=== PATIENT | male | born 1960 | race Two or more races ===

== ENCOUNTER 2017-06-21 22:17 | Emergency (ER) | payer OTHER ==
[2017-06-21] MEDS ORDERED: PANTOPRAZOLE SODIUM 40 MG VIAL IV ONE (22:27)
[2017-06-21] MEDS ORDERED: MIDAZOLAM 2 MG/2 ML INJ IV ONE (22:27)
[2017-06-21] MEDS ORDERED: ONDANSETRON HCL INJ/PF 4 MG/2 ML SDV IV ONE (22:27)
--- NOTE | 2017-06-21 22:35 | ER Document Report ---
ED General - General Stated Complaint: ALTERED MENTAL STATUS Time Seen by Provider: 06/21/17 22:27 Notes: 57-year-old male presents brought in by his for altered mental status and combativeness. He has a history of diabetes alcoholism and possible pancreatitis and was found to the [facility] vomiting after drinking. She does not have much more information available and the patient is altered and combative. - Related Data Allergies/Adverse Reactions: codeine [Codeine] Allergy (Verified 11/08/13 10:29) bee Allergy (Uncoded 11/08/13 10:29) Past Medical History - General Information source: Patient, Relative - Social History Smoking Status: Current Every Day Smoker Family History: Reviewed & Not Pertinent, Other - Unavailable secondary to mental status - Past Medical History Cardiac Medical History: Reports: Hx Hypertension Endocrine Medical History: Reports: Hx Diabetes Mellitus Type 2 Past Surgical History: Reports: Hx Orthopedic Surgery - right knee, Hx Pancreatic Surgery - insulin pump, Hx Tonsillectomy - Immunizations Hx Diphtheria, Pertussis, Tetanus Vaccination: Yes Review of Systems - Review of Systems Notes: REVIEW OF SYSTEMS Not obtained secondary to altered mental status/patient's acuity PHYSICAL EXAMINATION General: Appears acutely ill and smells of vomit Head: Atraumatic, normocephalic ENT: Mouth normal, oropharynx moist, no exudates or tonsillar enlargement Eyes: Conjunctiva normal, pupils equal, lids normal Neck: No JVD, supple, no guarding CVS: Normal rate, regular rhythm, no murmurs Resp: No resp distress, equal and normal breath sounds bilaterally GI: Nondistended, soft, no tenderness to palpation, no rebound or guarding Ext: No deformities, no edema, normal range of motion in upper and lower ext Back: No CVA or midline TTP Skin: No rash, warm Lymphatic: No lymphadeopathy noted Neuro: Intermittently thrashing strongly with all 4 extremities and somnolent.. Physical Exam - Vital signs Vitals: Resp Pulse Ox 14 95 06/21/17 22:30 06/21/17 22:30 Course - Re-evaluation Re-evalutation: 06/21/17 22:34 This patient was seen by me immediately on arrival secondary to acuity. This is a 57-year-old male brought in with altered mental status in the setting of known diabetes and alcoholism. There is not much history available. He has no trauma. Initially his blood sugar, after being held down and checked, was 131 so this is not the source. Differential includes narcotic overdose, alcohol intoxication, DKA or encephalopathy. The patient was immediately given 2 mg of intravenous Versed and restrained. This facilitated further laboratory workup. His vital signs were stable. He did begin vomiting pinkish vomit. This was suctioned free of the airway and required no further action. He was given Zofran. I will do workup both for his altered mental status and GI bleed which will consist of laboratory testing. He will be given a liter of fluid. I discussed his condition with his . 06/21/17 22:41 Reassessed at 10:40 PM. Patient is snoring and occasionally drops his saturation to about 90. This corrects with airway repositioning, stimulation and supplemental oxygen and is likely due to the interaction of the bends it has been in alcohol. 06/21/17 23:08 Patient's blood pressure is now in the 70s. He is arousable to sternal rub and his saturation is normal. I did did a rectal exam and he has brown stool in the vault which is light brown and does not require guaiac testing. I will give him a liter of fluid. Hopefully this is just dehydration intoxication, and sympathic lysis from Versed. Will continue to follow and follow-up labs which are now pending. 06/22/17 05:52 Awake and alert clinically sober at 5:50 AM. Stable for discharge home. - Vital Signs Vital signs: Temp Pulse Resp BP Pulse Ox 97.4 F 13 119/74 97 06/22/17 03:30 06/22/17 03:25 06/22/17 03:16 06/22/17 03:30 - Laboratory Result Diagrams: 06/21/17 22:29 06/21/17 22:29 Laboratory results interpreted by me: 06/21/17 06/21/17 06/21/17 22:22 22:29 22:29 WBC 10.7 H Seg Neuts % (Manual) 23 L Lymphocytes % (Manual) 65 H Abs Lymphs (Manual) 7.4 H Sodium 146.7 H Glucose 130 H POC Glucose 133 H Urine Glucose (UA) 06/21/17 23:15 WBC Seg Neuts % (Manual) Lymphocytes % (Manual) Abs Lymphs (Manual) Sodium Glucose POC Glucose Urine Glucose (UA) >=500 H Critical Care Note - Critical Care Note Total time excluding time spent on procedures (mins): 40 - The above patient is critically ill. Not including procedures, but including direct re-evaluations, speaking with patient and/or consultants, interpreting results, and documenting , I spent the total amount of minute listed listed above on critical care time Discharge - Discharge Clinical Impression: Alcohol intoxication Qualifiers: Complication of substance-induced condition: uncomplicated Qualified Code(s): F10.920 - Alcohol use, unspecified with intoxication, uncomplicated Condition: Good Disposition: HOME, SELF-CARE Instructions: Acute Alcohol Intoxication ([facility])
--- NOTE | 2017-06-21 23:07 | RADIOLOGY REPORT (SQ) ---
EXAM DESCRIPTION: CHEST SINGLE VIEW COMPLETED DATE/TIME: 06/21/2017 10:58 pm REASON FOR STUDY: vomiting r/o aspiration COMPARISON: 11/07/2013 EXAM PARAMETERS: NUMBER OF VIEWS: One view. TECHNIQUE: Single frontal radiographic view of the chest acquired. RADIATION DOSE: NA LIMITATIONS: None. FINDINGS: LUNGS AND PLEURA: Low lung volumes results mild bronchovascular crowding. A subtle left l ower lobe hazy opacification is present. No pleural effusion or pneumothorax is demonstrated. MEDIASTINUM AND HILAR STRUCTURES: No masses. Contour normal. HEART AND VASCULAR STRUCTURES: Heart normal in size. Normal vasculature. BONES: No acute findings. HARDWARE: None in the chest. OTHER: No other significant finding. IMPRESSION: Subtle findings suggesting a left lower lobe pneumonitis. TECHNICAL DOCUMENTATION: JOB ID: [id number]
[2017-06-21 23:14] LABS: HEMATOCRIT 47.1 % (37.9-51.0); HEMOGLOBIN 15.4 g/dL (13.5-17.0); HGB HCT DIFFERENCE -0.9; MEAN CORPUSCULAR HEMOGLOBIN 28.9 pg (27.0-33.4); MEAN CORPUSCULAR HGB CONC 32.6 g/dL (32.0-36.0); MEAN CORPUSCULAR VOLUME 88 fl (80-97); RED BLOOD COUNT 5.32 10^6/uL (4.35-5.55); RED CELL DISTRIBUTION WIDTH 13.8 % (11.5-14.0); WHITE BLOOD COUNT 10.7 10^3/uL (4.0-10.5)
[2017-06-21 23:32] LABS: ANION GAP 15 (5-19); BLOOD UREA NITROGEN 14 mg/dL (7-20); CALCIUM 9.4 mg/dL (8.4-10.2); CARBON DIOXIDE 25 mmol/L (22-30); CHLORIDE 107 mmol/L (98-107); CREATININE RESULT 1.05 mg/dL (0.52-1.25); GLUCOSE 130 mg/dL (75-110); LIPASE 29.2 U/L (23-300); SODIUM 146.7 mmol/L (137-145)
[2017-06-21 23:35] LABS: BASOPHILS % (MANUAL) 0 % (0-2); EOSINOPHILS % (MANUAL) 1 % (0-6); TOTAL CELLS COUNTED 100
[2017-06-21 23:39] LABS: LYMPHOCYTES % (MANUAL) 65 % (13-45); TARGET CELLS SLIGHT
[2017-06-22 00:47] LABS: APPEARANCE,URINE CLEAR; BILIRUBIN,URINE NEGATIVE (NEGATIVE); GLUCOSE, URINE >=500 mg/dL (NEGATIVE); KETONES,URINE NEGATIVE (NEGATIVE); LEUKOCYTE ESTERASE,URINE NEGATIVE (NEGATIVE); NITRITE,URINE NEGATIVE (NEGATIVE); PROTEIN,URINE NEGATIVE (NEGATIVE); URINE SPECIFIC GRAVITY 1.006; UROBILINOGEN,URINE NEGATIVE mg/dL (<2.0)
[2017-06-22 06:33] VITALS: BP 131/72
[2017-06-23 14:25] LABS: PATH REVIEW PATHOLOGIST REVIEWED
== END 2017-06-22 06:33 | disposition home or self-care (01) ==
LOC: ER 22:17
DX: F10.920 Alcohol use, unspecified with intoxication, uncomplicated (principal); R41.82 Altered mental status, unspecified; E11.9 Type 2 diabetes mellitus without complications; F17.200 Nicotine dependence, unspecified, uncomplicated
CPT/HCPCS: 99291; 96374; 96375; 86900; 86901; 36415; 86850; 82962; 83690; 85025; 82271; 80048; 81001; 71010; J2250; S0164; J2405

== ENCOUNTER 2018-08-14 23:02 | Emergency (ER) | payer OTHER ==
[2018-08-14 23:53] LABS: ABSOLUTE BASOPHILS # (AUTO) 0.2 10^3/uL (0.0-0.2); ABSOLUTE EOSINOPHILS # (AUTO) 0.2 10^3/uL (0.0-0.6); ABSOLUTE LYMPHOCYTES (AUTO) 5.5 10^3/uL (0.5-4.7); ABSOLUTE MONOCYTES (AUTO) 0.8 10^3/uL (0.1-1.4); ABSOLUTE NEUT (AUTO) 3.6 10^3/uL (1.7-8.2); BASOPHILS % (AUTO) 1.5 % (0-2); EOSINOPHILS % (AUTO) 1.5 % (0-6); HEMATOCRIT 40.5 % (37.9-51.0); HEMOGLOBIN 13.7 g/dL (13.5-17.0); LYMPHOCYTES % (AUTO) 54.1 % (13-45); MEAN CORPUSCULAR HEMOGLOBIN 29.3 pg (27.0-33.4); MEAN CORPUSCULAR HGB CONC 33.9 g/dL (32.0-36.0); MEAN CORPUSCULAR VOLUME 86 fl (80-97); MONOCYTES % (AUTO) 7.4 % (3-13); PLATELET COUNT 288 10^3/uL (150-450); RED BLOOD COUNT 4.69 10^6/uL (4.35-5.55); RED CELL DISTRIBUTION WIDTH 14.8 % (11.5-14.0); SEGMENTED NEUTROPHILS % (AUTO) 35.5 % (42-78); TOTAL CELLS COUNTED % (AUTO) 100 %; WHITE BLOOD COUNT 10.1 10^3/uL (4.0-10.5)
[2018-08-15 00:13] LABS: ALANINE AMINOTRANSFERASE 50 U/L (21-72); ALKALINE PHOSPHATASE 72 U/L (38-126); ANION GAP 9 (5-19); ASPARTATE AMINO TRANSFERASE 65 U/L (17-59); BILIRUBIN,DIRECT 0.3 mg/dL (0.0-0.4); BILIRUBIN,TOTAL 0.8 mg/dL (0.2-1.3); BLOOD UREA NITROGEN 12 mg/dL (7-20); CALCIUM 9.4 mg/dL (8.4-10.2); CARBON DIOXIDE 28 mmol/L (22-30); CHLORIDE 107 mmol/L (98-107); CREATINE KINASE 197 U/L (55-170); GLUCOSE 94 mg/dL (75-110); SODIUM 144.1 mmol/L (137-145); TOTAL PROTEIN 7.1 g/dL (6.3-8.2)
[2018-08-15 00:25] LABS: CREATINE KINASE MB 1.29 ng/mL (<4.55); TROPONIN I < 0.012 ng/mL
[2018-08-15] MEDS ORDERED: MORPHINE SULFATE 10 MG/ML INJ IV ONE (01:12)
[2018-08-15] MEDS ORDERED: METOCLOPRAMIDE HCL INJ/PF 10 MG/2 ML SDV IV ONE (01:12)
--- NOTE | 2018-08-15 01:16 | ER Document Report ---
ED General - General Chief Complaint: Chest Pain Stated Complaint: CHEST PAIN Time Seen by Provider: 08/15/18 00:58 Mode of Arrival: Ambulatory Information source: Patient, Relative, [facility] Records Notes: 58-year-old male with diabetes, hypertension, neuropathy, anxiety presents with complaint of chest pain, headache. Patient states that he has had chest pain for 1 year. He states that the chest pain worsened today and has been a constant stabbing pain since he has awoken. Patient complaining of radiation of pain down his left arm. Patient also complaining of left sided headache that he describes as pressure. reports that the patient has not slept in 3 days secondary to his neuropathy. Patient is a diabetic and has an insulin pump and reports that his sugars have been in the low 100s. He denies any previous DC, stress test. Patient took 325 mg of aspirin prior to arrival. TRAVEL OUTSIDE OF THE [place] IN LAST 30 DAYS: No - HPI Onset: Other Onset/Duration: Constant, Persistent, Worse Quality of pain: Pressure, Stabbing Severity: Mild Associated symptoms: Chest pain, Headache, Shortness of breath. denies: Nonproductive cough, Nausea, Vomiting, Sweating, Weakness Exacerbated by: Denies Relieved by: Denies Similar symptoms previously: Yes Recently seen / treated by doctor: No - Related Data Allergies/Adverse Reactions: codeine [Codeine] Allergy (Verified 11/08/13 10:29) bee Allergy (Uncoded 11/08/13 10:29) Past Medical History - General Information source: Patient, [facility] Records - Social History Smoking Status: Current Every Day Smoker Cigarette use (# per day): Yes - 15 Smoking Education Provided: Yes - Smoking cessation counseling was provided for 4 minutes at the bedside Frequency of alcohol use: Occasional Drug Abuse: None Lives with: Spouse/Significant other Family History: Reviewed & Not Pertinent, Other - Unavailable secondary to mental status Patient has suicidal ideation: No Patient has homicidal ideation: No - Past Medical History Cardiac Medical History: Reports: Hx Hypertension Endocrine Medical History: Reports: Hx Diabetes Mellitus Type 2 - insulin pump Renal/ Medical History: Denies: Hx Peritoneal Dialysis Past Surgical History: Reports: Hx Orthopedic Surgery - right knee, Hx Pancreatic Surgery - insulin pump, Hx Tonsillectomy - Immunizations Hx Diphtheria, Pertussis, Tetanus Vaccination: Yes Review of Systems - Review of Systems Notes: REVIEW OF SYSTEMS: CONSTITUTIONAL : Denies fever, chills, or sweats. Denies recent illness. Denies weight loss, recent hospitalizations. EENT: Denies visual changes, eye pain. Denies sore throat, oral lesions, difficulty swallowing. CARDIOVASCULAR: Denies lower extremity edema. RESPIRATORY: Denies cough. Denies wheezing. GASTROINTESTINAL: Denies abdominal pain or distention. Denies nausea, vomiting , or diarrhea. Denies blood in vomitus, stools, or per rectum. Denies black, tarry stools. Denies constipation. GENITOURINARY: Denies difficulty urinating, painful urination, frequency, blood in urine, testicular pain or penile discharge. MUSCULOSKELETAL: Denies back or neck pain or stiffness. Denies joint pain or swelling. SKIN: Denies rash, lesions or sores. HEMATOLOGIC : Denies easy bruising or bleeding. LYMPHATIC: Denies swollen glands. NEUROLOGICAL: Denies confusion or altered mental status. Denies loss of consciousness. Denies dizziness or lightheadedness. Denies weakness or paralysis. Denies problems difficulty with ambulation, slurred speech. Denies sensory loss, numbness, or tingling. Denies seizures. PSYCHIATRIC: Denies anxiety or stress. Denies depression, suicidal ideation, or Physical Exam - Vital signs Vitals: Temp Pulse Resp BP Pulse Ox 98.6 F 75 20 163/73 H 100 08/14/18 23:08 08/14/18 23:08 08/14/18 23:08 08/14/18 23:08 08/14/18 23:08 - Notes Notes: PHYSICAL EXAMINATION: GENERAL: Well-appearing, well-nourished and in no acute distress. HEAD: Atraumatic, normocephalic. EYES: Pupils equal round and reactive to light, extraocular movements intact, sclera anicteric, conjunctiva are normal. ENT: Nares patent, oropharynx clear without exudates. Moist mucous membranes. NECK: Normal range of motion, supple without lymphadenopathy LUNGS: Breath sounds clear to auscultation bilaterally and equal. No wheezes rales or rhonchi. HEART: Regular rate and rhythm without murmurs. Pulses equal throughout. ABDOMEN: Soft, nontender, nondistended abdomen. No guarding, no rebound. No masses appreciated. Musculoskeletal: Normal range of motion, no pitting or edema. No cyanosis. NEUROLOGICAL: Cranial nerves grossly intact. Normal speech, normal gait. Normal sensory, motor exams PSYCH: Normal mood, normal affect. SKIN: Warm, Dry, normal turgor, no rashes or lesions noted. Course - Re-evaluation Re-evalutation: Laboratory 08/14/18 08/14/18 08/14/18 23:40 23:40 23:40 WBC 10.1 RBC 4.69 Hgb 13.7 Hct 40.5 MCV 86 MCH 29.3 MCHC 33.9 RDW 14.8 H Plt Count 288 Seg Neutrophils % 35.5 L Lymphocytes % 54.1 H Monocytes % 7.4 Eosinophils % 1.5 Basophils % 1.5 Absolute Neutrophils 3.6 Absolute Lymphocytes 5.5 H Absolute Monocytes 0.8 Absolute Eosinophils 0.2 Absolute Basophils 0.2 Sodium 144.1 Potassium 4.0 Chloride 107 Carbon Dioxide 28 Anion Gap 9 BUN 12 Creatinine 0.93 Est GFR ( Amer) > 60 Est GFR (Non-Af Amer) > 60 Glucose 94 Calcium 9.4 Total Bilirubin 0.8 Direct Bilirubin 0.3 Neonat Total Bilirubin Not Reportable Neonat Direct Bilirubin Not Reportable Neonat Indirect Bili Not Reportable AST 65 H ALT 50 Alkaline Phosphatase 72 Creatine Kinase 197 H CK-MB (CK-2) 1.29 Troponin I < 0.012 Total Protein 7.1 Albumin 4.0 08/15/18 03:27 WBC RBC Hgb Hct MCV MCH MCHC RDW Plt Count Seg Neutrophils % Lymphocytes % Monocytes % Eosinophils % Basophils % Absolute Neutrophils Absolute Lymphocytes Absolute Monocytes Absolute Eosinophils Absolute Basophils Sodium Potassium Chloride Carbon Dioxide Anion Gap BUN Creatinine Est GFR ( Amer) Est GFR (Non-Af Amer) Glucose Calcium Total Bilirubin Direct Bilirubin Neonat Total Bilirubin Neonat Direct Bilirubin Neonat Indirect Bili AST ALT Alkaline Phosphatase Creatine Kinase CK-MB (CK-2) Troponin I < 0.012 Total Protein Albumin Chest X-Ray 08/14/18 23:27 IMPRESSION: 1. No acute pulmonary process identified. Chest/Abdomen CTA 08/15/18 01:11 IMPRESSION: 1. No CT evidence to suggest acute or chronic pulmonary embolism, aortic aneurysm or aortic dissection. 2. Paraseptal emphysematous changes in the lung apices, greater in the right lung apex and mild parenchymal fibrosis in the anterior left upper lobe. An acute infectious or inflammatory process is considered less likely but not entirely excluded. 3. No evidence of acute intrathoracic disease. 4. Chronic pancreatitis. 58-year-old male presents with complaint of chest pain, left arm pain and headache. Patient states that he has had chest pain for several months. Headache started 2 days prior to arrival. Patient's arm pain is associated with chronic neuropathy. He denies any new injury. Upon arrival vital signs reviewed and within normal limits. Because of the patient's complaint of chest pain with radiation to his back a CTA was obtained and showed no evidence of aortic aneurysm, aortic dissection, pulmonary embolism. Patient was given morphine and Reglan for his headache and chest pain. No significant laboratory findings on CBC, CMP, cardiac enzymes. Troponin negative 2. 08/15/18 03:27 On reevaluation patient reports an improvement of his chest pain, headache. 08/15/18 05:06 On second reevaluation patient still remains chest pain-free. He is declining home-going pain medication. We did speak about follow-up with his primary care physician in the next 3-5 days for possible stress test. Presentation of chest pain in an otherwise well appearing patient. Low clinical suspicion for ACS given clinical history, exam, EKG without ST elevations or depressions, and negative initial troponin. HEART score less than or equal to 3. PE also seems unlikely given clinical history, absence of tachycardia or dyspnea. Patient is PERC criteria negative. CXR without evidence of pneumothorax or pneumonia. No widened mediastinum. Aortic dissection also seems unlikely given history, symmetric pulses, CXR, and vitals. HEART Score: History-0 ECG-0 Age-1 Risk Factors-1 Troponin-0 Total: 2 Chest pain in a patient without evidence of cardiac or other serious etiology on workup today. I discussed with patient that, based on their age, risk factors and emergency department testing today, the likelihood that their symptoms are related to a heart attack is very low (estimated risk of heart attack or over the next 30 days of less than 1%). The patient demonstrates decision making capacity and has verbalized an understanding of these risks to me. Based on this, the patient has chosen to follow-up as an outpatient. Usual chest pain return precautions reviewed. The patient states understanding and agreement with this plan. 08/15/18 21:46 08/15/18 21:48 - Vital Signs Vital signs: Temp Pulse Resp BP Pulse Ox 97.7 F 75 12 150/83 H 98 08/15/18 05:41 08/14/18 23:08 08/15/18 05:35 08/15/18 05:35 08/15/18 05:35 - Laboratory Result Diagrams: 08/14/18 23:40 08/14/18 23:40 Laboratory results interpreted by me: 08/14/18 08/14/18 23:40 23:40 RDW 14.8 H Seg Neutrophils % 35.5 L Lymphocytes % 54.1 H Absolute Lymphocytes 5.5 H AST 65 H Creatine Kinase 197 H - Diagnostic Test Radiology reviewed: Image reviewed, Reports reviewed - EKG Interpretation by Me EKG shows normal: Sinus rhythm Rate: Normal Rhythm: NSR When compared to previous EKG there are: No significant change Discharge - Discharge Clinical Impression: Chest pain Qualifiers: Chest pain type: unspecified Qualified Code(s): R07.9 - Chest pain, unspecified Headache Qualifiers: Headache type: unspecified Headache chronicity pattern: unspecified pattern Intractability: not intractable Qualified Code(s): R51 - Headache Hypertension Qualifiers: Hypertension type: unspecified Qualified Code(s): I10 - Essential (primary) hypertension Condition: Good Disposition: HOME, SELF-CARE Instructions: Aspirin (Cardiac) ([facility]), Chest Pain of Unclear Cause ([facility]), Headache ([facility]) Additional Instructions: You were seen today for chest pain. The exact cause of your pain is unclear. However, based on your cardiac enzyme testing, chest x-ray, and EKG it does not appear that it is from an immediately life-threatening cause at this time. Although your testing here is normal is critical that you follow-up with your primary care physician for continued evaluation of this chest pain and possible stress testing. I recommended you see your physician within the next 24-48 hours to be evaluated for consideration of a stress test. Please return to emergency department immediately if you have worsening of your chest pain, shortness of breath, vomiting, become unable to exert yourself due to pain or difficulty breathing, you pass out, or have any pain that radiates into your arms, jaw, or back. Please also return if you have any additional symptoms that are concerning to you. Forms: Elevated Blood Pressure
--- NOTE | 2018-08-15 02:07 | RADIOLOGY REPORT (SQ) ---
EXAM DESCRIPTION: XR CHEST 1 VIEW COMPLETED DATE/TME: 08/14/2018 23:27 CLINICAL HISTORY: CHEST PAIN COMPARISON: 06/21/2017 FINDINGS: Single frontal view of the chest. Tortuosity of the thoracic aorta. Heart is not enlarged. No consolidation, pneumothorax, or pleural effusion. No displaced rib fractures identified. Leads overlie the chest. Upper abdominal soft tissues are unremarkable. IMPRESSION: 1. No acute pulmonary process identified.
--- NOTE | 2018-08-15 02:56 | RADIOLOGY REPORT (SQ) ---
CLINICAL DATA: 58-year-old male with chest and back pain. TECHNICAL DATA: Following the administration of intravenous contrast, multiple high-resolution axial images of the chest were performed followed by sagittal and coronal reconstructed images. Bilateral oblique images were also performed. The CT study is performed according to ALARA (as low as reasonably achievable) or ALARA/IMAGE GENTLY, with automatic adjustment of mA and/or kV according to patient size. COMPARISONS: Chest x-ray performed on 08/15/2018. No prior chest CTs were available for comparison. FINDINGS: There is satisfactory visualization and contrast opacification of pulmonary arteries. No definite intra-arterial filling defects are identified to suggest acute or chronic pulmonary embolism. The thoracic aorta is normal in caliber and contour without evidence of aneurysm or dissection. Lungs are well expanded. There are paraseptal emphysematous changes in the lung apices greatest in the right lung apex. There is mild interstitial prominence in the anterior left upper lobe likely due to parenchymal fibrosis. There is no dense airspace consolidation. There are no pleural effusions. There is no pneumothorax. The heart is normal in size. There is no pericardial effusion. No pathologic hilar, mediastinal or axillary lymphadenopathy is identified. No acute osseous abnormality is identified. The visualized upper abdominal structures reveals numerous calcifications scattered throughout the pancreas consistent with chronic pancreatitis. IMPRESSION: 1. No CT evidence to suggest acute or chronic pulmonary embolism, aortic aneurysm or aortic dissection. 2. Paraseptal emphysematous changes in the lung apices, greater in the right lung apex and mild parenchymal fibrosis in the anterior left upper lobe. An acute infectious or inflammatory process is considered less likely but not entirely excluded. 3. No evidence of acute intrathoracic disease. 4. Chronic pancreatitis.
[2018-08-15 05:41] VITALS: BP 150/83
--- NOTE | 2018-08-15 12:39 | EKG REPORT ---
SEVERITY:- OTHERWISE NORMAL ECG - SINUS RHYTHM BORDERLINE RIGHT AXIS DEVIATION : Confirmed by: Sallie Jorge MD 15-Aug-2018 12:38:30
== END 2018-08-15 05:40 | disposition home or self-care (01) ==
LOC: ER 23:02
DX: R07.9 Chest pain, unspecified (principal); R51 Headache; I10 Essential (primary) hypertension
CPT/HCPCS: 93005; 99285; 96374; 96375; 36415; 82553; 82550; 85025; 80053; 84484; 71045; 71275; 93010; J2765; J2270

== ENCOUNTER 2019-09-09 13:37 | Emergency (ER) | payer OTHER ==
--- NOTE | 2019-09-09 14:46 | ER Document Report ---
ED Medical Screen (RME) - General Chief Complaint: Chest Pain > 30 Stated Complaint: CHEST PAIN Time Seen by Provider: 09/09/19 14:41 Mode of Arrival: Ambulatory Information source: Patient Notes: 59-year-old male presented to ED for complaint of pain from shingles that he has had since February. He states he also has pain all over upper and lower extremities with a burning sensation. The shingles have been on his left shoulder chest and back. He states he has had worsening left upper chest. He is a diabetic and is on gabapentin for the neuropathy from the diabetes. They stopped the gabapentin and put him on Lyrica for the pain. He states today he is pain is much worse and he is having total body weakness and burning left chest with left chest discomfort for that worsens with deep breathing. He states he is also been more short of breath today. States he went to [place] last week for chest pain but this is not the same chest pain that he is having today. He states they worked him up with a cardiology on he was kept overnight and then discharged. I have greeted and performed a rapid initial assessment of this patient. A comprehensive ED assessment and evaluation of the patient, analysis of test results and completion of medical decision making process will be conducted by an additional ED providers. TRAVEL OUTSIDE OF THE [place] IN LAST 30 DAYS: No - Related Data Allergies/Adverse Reactions: codeine [Codeine] Allergy (Verified 09/09/19 14:24) bee Allergy (Uncoded 09/09/19 14:24) Past Medical History - Past Medical History Cardiac Medical History: Reports: Hx Hypertension Endocrine Medical History: Reports: Hx Diabetes Mellitus Type 2 - insulin pump Renal/ Medical History: Denies: Hx Peritoneal Dialysis Past Surgical History: Reports: Hx Orthopedic Surgery - right knee, Hx Pancreatic Surgery - insulin pump, Hx Tonsillectomy - Immunizations Hx Diphtheria, Pertussis, Tetanus Vaccination: Yes Physical Exam - Vital signs Vitals: Temp Pulse Resp BP Pulse Ox 98.4 F 72 18 164/81 H 100 09/09/19 14:26 09/09/19 14:26 09/09/19 14:26 09/09/19 14:26 09/09/19 14:26 Course - Vital Signs Vital signs: Temp Pulse Resp BP Pulse Ox 98.4 F 72 18 164/81 H 100 09/09/19 14:26 09/09/19 14:26 09/09/19 14:26 09/09/19 14:26 09/09/19 14:26
[2019-09-09] MEDS ORDERED: ASPIRIN 81 MG TABLET, CHEWABLE PO ONE (14:47)
[2019-09-09] MEDS ORDERED: NORMAL SALINE 1000 ML 1,000 ML IV ONE (14:49)
[2019-09-09 15:39] LABS: ABSOLUTE BASOPHILS # (AUTO) 0.1 10^3/uL (0.0-0.2); ABSOLUTE EOSINOPHILS # (AUTO) 0.1 10^3/uL (0.0-0.6); ABSOLUTE LYMPHOCYTES (AUTO) 3.3 10^3/uL (0.5-4.7); ABSOLUTE MONOCYTES (AUTO) 0.4 10^3/uL (0.1-1.4); BASOPHILS % (AUTO) 0.9 % (0-2); EOSINOPHILS % (AUTO) 1.8 % (0-6); HEMATOCRIT 41.4 % (37.9-51.0); HEMOGLOBIN 13.7 g/dL (13.5-17.0); LYMPHOCYTES % (AUTO) 56.2 % (13-45); MEAN CORPUSCULAR HEMOGLOBIN 28.7 pg (27.0-33.4); MEAN CORPUSCULAR VOLUME 87 fl (80-97); MONOCYTES % (AUTO) 7.2 % (3-13); PLATELET COUNT 262 10^3/uL (150-450); RED BLOOD COUNT 4.77 10^6/uL (4.35-5.55); RED CELL DISTRIBUTION WIDTH 13.1 % (11.5-14.0); SEGMENTED NEUTROPHILS % (AUTO) 33.9 % (42-78); TOTAL CELLS COUNTED % (AUTO) 100 %; WHITE BLOOD COUNT 5.8 10^3/uL (4.0-10.5)
--- NOTE | 2019-09-09 15:39 | RADIOLOGY REPORT (SQ) ---
EXAM DESCRIPTION: CHEST 2 VIEWS COMPLETED DATE/TIME: 09/09/2019 3:26 pm REASON FOR STUDY: chest discomfort COMPARISON: 11/07/2013. EXAM PARAMETERS: NUMBER OF VIEWS: two views TECHNIQUE: Digital Frontal and Lateral radiographic views of the chest acquired. RADIATION DOSE: NA LIMITATIONS: none FINDINGS: LUNGS AND PLEURA: No opacities, masses or pneumothorax. No pleural effusion. MEDIASTINUM AND HILAR STRUCTURES: No masses or contour abnormalities. HEART AND VASCULAR STRUCTURES: Heart normal size. No evidence for failure. BONES: No acute findings. HARDWARE: None in the chest. OTHER: Pancreatic calcifications. IMPRESSION: NO ACUTE RADIOGRAPHIC FINDING IN THE CHEST. TECHNICAL DOCUMENTATION: JOB ID: [id number] [employer]- All Rights Reserved Reading location - IP/workstation name: [email or web address]
[2019-09-09 15:47] LABS: INTERNATIONAL RATION (INR) 1.12; PARTIAL THROMBOPLASTIN TIME 32.2 SEC (23.5-35.8); PROTHROMBIN TIME 14.5 SEC (11.4-15.4)
[2019-09-09 15:57] LABS: ALBUMIN 3.7 g/dL (3.5-5.0); ALKALINE PHOSPHATASE 86 U/L (38-126); ANION GAP 7 (5-19); ASPARTATE AMINO TRANSFERASE 23 U/L (17-59); BILIRUBIN,DIRECT 0.1 mg/dL (0.0-0.4); BILIRUBIN,TOTAL 0.3 mg/dL (0.2-1.3); BLOOD UREA NITROGEN 10 mg/dL (7-20); CALCIUM 9.2 mg/dL (8.4-10.2); CARBON DIOXIDE 30 mmol/L (22-30); CHLORIDE 103 mmol/L (98-107); CREATINE KINASE 83 U/L (55-170); GLUCOSE 281 mg/dL (75-110); POTASSIUM 4.8 mmol/L (3.6-5.0); TOTAL PROTEIN 6.6 g/dL (6.3-8.2)
[2019-09-09 16:09] LABS: CREATINE KINASE MB 1.03 ng/mL (<4.55); NT PRO BNP 72 pg/mL (5-900)
[2019-09-09 16:18] LABS: TROPONIN I < 0.012 ng/mL
[2019-09-09 16:54] LABS: VENOUS BLOOD BASE EXCESS 3.5 mmol/L; VENOUS BLOOD PCO2 60.1 mmHg (35-63); VENOUS BLOOD PH 7.33 (7.30-7.42)
[2019-09-09] MEDS ORDERED: MORPHINE SULFATE 10 MG/ML INJ IV ONE (21:55)
--- NOTE | 2019-09-09 22:01 | ER Document Report ---
ED General - General Chief Complaint: Chest Pain Stated Complaint: CHEST PAIN Time Seen by Provider: 09/09/19 14:41 Primary Care Provider: NAN BARRIGA [Primary Care Provider] - Follow up in 3-5 days Mode of Arrival: Ambulatory Notes: Patient is a 59-year-old male with a past medical history of diabetes and diabetic neuropathy presents the emergency department with bilateral leg pain. Patient states that he is currently on gabapentin and Lyrica. Patient states that he is starting to go off of his gabapentin and was restarted on Lyrica. He states that he feels that he has not been on Lyrica long enough to feel the effects. Although in triage it is listed that the patient has chest pain, the patient denies any chest pain at this time. Patient states that his leg pain is a little better, but feels that nothing was done at this time. Patient was also recently seen in [place] for chest pain. The patient was admitted overnight with no findings. Patient states that he feels his diabetic neuropathy has intensified. Denies any weakness. - Related Data Allergies/Adverse Reactions: codeine [Codeine] Allergy (Verified 09/09/19 14:24) bee Allergy (Uncoded 09/09/19 14:24) Past Medical History - General Information source: Patient - Social History Smoking Status: Current Every Day Smoker Chew tobacco use (# tins/day): No Frequency of alcohol use: None Drug Abuse: None Family History: Reviewed & Not Pertinent, Other - Unavailable secondary to mental status Patient has suicidal ideation: No Patient has homicidal ideation: No - Past Medical History Cardiac Medical History: Reports: Hx Hypertension Endocrine Medical History: Reports: Hx Diabetes Mellitus Type 2 - insulin pump Renal/ Medical History: Denies: Hx Peritoneal Dialysis Past Surgical History: Reports: Hx Orthopedic Surgery - right knee, Hx Pancreatic Surgery - insulin pump, Hx Tonsillectomy - Immunizations Hx Diphtheria, Pertussis, Tetanus Vaccination: Yes Review of Systems - Review of Systems Notes: REVIEW OF SYSTEMS: CONSTITUTIONAL : Denies recent illness. Denies recent unintentional weight loss. Denies fever, chills, or sweats. EENT: Denies eye, ear, throat, or mouth pain, discharge, or symptoms. Denies nasal or sinus congestion. CARDIOVASCULAR: Denies chest pain. RESPIRATORY: Denies shortness of breath, cough, congestion, difficulty breathing, or wheezing. GASTROINTESTINAL: Denies nausea, vomiting, and diarrhea. Denies abdominal pain. Denies constipation. GENITOURINARY: Denies difficulty urinating, burning, blood in urine, urgency or frequency. MUSCULOSKELETAL: See HPI. SKIN: Denies rash, itchiness, or lesions HEMATOLOGIC : Denies easy bruising or bleeding. LYMPHATIC: Denies swollen, painful, enlarged glands. NEUROLOGICAL: See HPI. PSYCHIATRIC: Denies stress, anxiety, alteration in sleep patterns, or depression. All other systems reviewed and negative. Physical Exam - Vital signs Vitals: Temp Pulse Resp BP Pulse Ox 98.4 F 72 18 164/81 H 100 09/09/19 14:26 09/09/19 14:26 09/09/19 14:26 09/09/19 14:26 09/09/19 14:26 - Notes Notes: PHYSICAL EXAMINATION: GENERAL: Appears well, healthy, well-nourished, no acute distress. HEAD: Normocephalic, atraumatic. EYES: PERRL, conjunctiva normal, all extraocular movements intact, sclera nonicteric ENT: Moist mucous membranes. NECK: Supple, no noticeable swelling, redness, rash. Normal range of motion. LUNGS: Equal breath sounds bilaterally and clear to auscultation. No wheezes rales or rhonchi. CARDIOVASCULAR: S1-S2, regular rate, regular rhythm. Radial pulses 2+, normal. ABDOMEN: Normoactive bowel sounds. Soft, nontender, no guarding, no rebound tenderness, and no masses palpated. EXTREMITIES: Normal strength and range of motion, no pitting or edema. No cyanosis. NEUROLOGICAL: Moves all extremities upon command. Strength 5/5 in all extremities. PSYCH: Normal mood, normal affect. SKIN: Warm, dry. No rash, lesions, ulcerations noted. Normal skin turgor. Course - Re-evaluation Re-evalutation: 09/09/19 22:01 Patient adamantly denies any chest pain at this time. His labs were normal. Patient states that his pain was mainly from his diabetic neuropathy. Patient is asking for pain medication would like to leave at this time. Blood sugar was 286. Patient states that he did not cover his sugar with insulin before he came into the hospital. Very low suspicion for any life-threatening etiology at this time. Patient will be given morphine to help with his pain. Patient is requesting to leave at this time. Follow-up precautions were given. Verbal discharge instructions were given to the patient. They verbalized understanding. They are stable for discharge. - Vital Signs Vital signs: Temp Pulse Resp BP Pulse Ox 98.4 F 72 12 163/80 H 100 09/09/19 14:26 09/09/19 14:26 09/09/19 18:01 09/09/19 18:01 09/09/19 18:01 - Laboratory Result Diagrams: 09/09/19 15:15 09/09/19 15:15 Laboratory results interpreted by me: 09/09/19 09/09/19 09/09/19 14:49 15:15 15:15 Lymph % (Auto) 56.2 H Seg Neutrophils % 33.9 L Glucose 281 H POC Glucose 306 H - EKG Interpretation by Me Additional EKG results interpreted by me: 09/09/19 22:03 Sinus rhythm. Rate 77. DE 156; QRS 78; QT 400; QTc 453. No ST elevations or depressions noted. Discharge - Discharge Clinical Impression: Diabetic neuropathy, painful Condition: Stable Disposition: HOME, SELF-CARE Additional Instructions: You are seen today in the emergency department for diabetic neuropathy pain. Your labs your sugar was your blood sugar was 306 here in the emergency department. You stated that you did not cover yourself after eating. If your sugars are high, please speak with your primary care provider about having your long-acting insulin increased. Please continue your Lyrica and try to taper down your gabapentin. Referrals: [facility] [Primary Care Provider] - Follow up in 3-5 days
[2019-09-09 22:23] VITALS: BP 160/78
--- NOTE | 2019-09-10 07:18 | EKG REPORT ---
SEVERITY:- OTHERWISE NORMAL ECG - SINUS RHYTHM BORDERLINE RIGHT AXIS DEVIATION : Confirmed by: Brie Borja 10-Sep-2019 07:18:12
== END 2019-09-09 22:32 | disposition home or self-care (01) ==
LOC: ER 13:37
DX: E11.40 Type 2 diabetes mellitus with diabetic neuropathy, unspecified (principal); Z96.41 Presence of insulin pump (external) (internal); Z79.899 Other long term (current) drug therapy; M79.604 Pain in right leg; M79.605 Pain in left leg; I10 Essential (primary) hypertension; F17.200 Nicotine dependence, unspecified, uncomplicated; Z88.5 Allergy status to narcotic agent; Z91.030 Bee allergy status
CPT/HCPCS: 36415; 87040; 82553; 82962; 82550; 83735; 84443; 85025; 85610; 85730; 80053; 84484; 82803; 83880; 71046; J2270; J7030; 93005; 93010